=== PATIENT | male | born 1960 | race African-American/Black ===

== ENCOUNTER 2016-12-08 11:01 | Emergency (ER) | payer OTHER ==
[~2016-12-08] VITALS: Ht 190.5 cm; Wt 99.8 kg
[2016-12-08] MEDS ORDERED: VITAMIN D2000 UNI1 PO (13:04)
[2016-12-08] MEDS ORDERED: MELOXICAM15 MG PO (13:04)
[2016-12-08] MEDS ORDERED: ZOFRAN ODT4 MG PO (14:08)
[2016-12-08] MEDS ORDERED: FIORICET 50-301 EACH PO (14:08)
[2016-12-08 14:30] VITALS: BP 136/84
== END 2016-12-08 14:31 | disposition home or self-care (01) ==
LOC: EME 11:01
DX: S06.0X9A Concussion with loss of consciousness of unspecified duration, initial encounter (principal); S00.83XA Contusion of other part of head, initial encounter; W00.0XXA Fall on same level due to ice and snow, initial encounter
CPT/HCPCS: 70450; 99281; 99284